=== PATIENT | male | born 1995 | race Caucasian/White ===

== ENCOUNTER 2017-05-01 21:34 | Emergency (ER) | payer OTHER ==
[2017-05-01] MEDS ORDERED: NS 1,000 ML IV ONE (21:40)
--- NOTE | 2017-05-01 21:41 | EDPHY ---
H & P HPI/ROS: HPI CHIEF COMPLAINT: Fall, Limited Trauma, ?13 feet. HISTORY OF PRESENT ILLNESS: This patient is 21-year-old male, he presents emergency room as a limited trauma by EMS. It is reported by EMS that the patient showed up to a house green party intoxicated. The patient went upstairs there is a deck out back with a balcony and told everybody was going to do a back flip off the edge of the balcony. He then proceeded to do this landing on his back falling 13-15 feet per EMS. Per witnesses he immediately got up off the ground and ran. Other people at the green party stops him police got involved. Due to his alcohol intoxication and the height of the fall he was brought to the emergency room as a limited trauma. Upon arrival to the emergency room the patient smells of alcohol, he is intoxicated, he tells me that he did not fall. He will not explain what happened. He does not answer any of my questions related to the event. Past Medical History: Denies medical history Past Surgical History: Denies surgical history Social History: Student, endorses alcohol this evening. Family History: Noncontributory ROS REVIEW OF SYSTEMS: Review systems is limited due to patient's mental state. Intoxication with alcohol. And unwilling to answer my questions. Exam Constitutional smells of alcohol, intoxicated, triage nursing summary reviewed , vital signs reviewed, awake/alert. Eyes normal conjunctivae and sclera, EOMI, PERRLA. 5 mm dilated pupils equal , sluggish to light. HENT head and neck reviewed no visible external trauma. normal inspection, atraumatic, moist mucus membranes, no epistaxis, neck supple/ no meningismus, no raccoon eyes. Respiratory clear to auscultation bilaterally, normal breath sounds, no respiratory distress, no wheezing. Cardiovascular rate normal, regular rhythm, no murmur, no edema, distal pulses normal. Gastrointestinal soft, non-tender, no rebound, no guarding, normal bowel sounds, no distension, no pulsatile mass. Genitourinary no CVA tenderness. Musculoskeletal no midline vertebral tenderness, full range of motion, no calf swelling, no tenderness of extremities, no meningismus, good pulses, neurovascularly intact. Skin superficial abrasions to the back pink, warm, & dry, no rash Neurologic awake, moves all 4 extremities equally, motor intact, smells of etoh. Psychiatric normal mood/affect. Heme/Lymph/Immune no lymphadenopathy. Differential Diagnosis: Includes but is not limited to in a particular order acute alcohol intoxication, closed head injury, subdural, traumatic subarachnoid , skull fracture, neck injury, other injuries from falling 15 feet. Medical Decision Making: Plan for this patient he is intoxicated altered he is unable to make medical decisions for himself. He has agreed to blood work and CT imaging. Plan will be to CT his head and neck to rule out significant trauma. Check blood work including alcohol level. Re-evaluation: CT scan head and neck for trauma are negative for acute traumatic injury. Report called to me by Dr. Rubio. 1239AM: This patient's labs reviewed urinalysis showed 3+ blood. Due to his fall and being intoxicated I elected to scan his abdomen pelvis with IV contrast to make sure does not have a kidney her general ureteral injury. The CT scan abdomen pelvis with IV contrast does not show any evidence of significant intra-abdominal traumatic injury. It is noted he does have disc herniation L4-L5 S1. Patient has no pain here. He has no back pain. There was a age indeterminate compression fracture seen on his chest x-ray however he does not have any midline back pain. Patient is still very intoxicated with alcohol. Once he is completely sober I will reassess him for further traumatic injuries. 1257AM: Patient is still intoxicated alcohol. He has no complaints at this time. Recommend re-evaluated when sober. 0501AM: This patient has been ambulatory throughout the emergency room multiple times this evening. He is requesting discharge. I did re-evaluate him he denies any pain anywhere specifically denies abdominal pain back pain neck pain headache shortness of breath or extremity pain. He is requesting discharge. He did come to the emergency room after took a fall from a high level. He was limited trauma. He was intoxicated. Now that he sober I reassessed him and he has no complaints. He did undergo a CT scan of his head and neck due to the mechanism and alcohol intoxication and not acting appropriately when he got here. These were reviewed and unremarkable for trauma. He additionally had a chest x-ray. Additionally the patient had blood in his urine 3+. Due to this reason he had a CT scan of his abdomen pelvis with IV contrast. There is no visible acute traumatic injury intra-abdominally. Specifically no kidney injury or bladder injury. Given the blood seen in his urine I will have him follow up with Urology outpatient. Additionally he understands return emergency room if develops worsening symptoms questions or concerns. Source: Patient - Personal History Tetanus Vaccine Date: 2013 - Medical/Surgical History Hx Asthma: No Hx Chronic Respiratory Disease: No Hx Diabetes: No Hx Cardiac Disease: No Hx Renal Disease: No Hx Cirrhosis: No Hx Alcoholism: No Hx HIV/AIDS: No Hx Splenectomy or Spleen Trauma: No Other PMH: Left wrist fracture, freq strep throat. - Social History Smoking Status: Never smoked Allergies/Adverse Reactions: No Known Allergies Allergy (Unverified 05/10/16 12:09) Home Medications: Medication Instructions Recorded Ondansetron 05/10/16 Penicillin V Potassium 05/10/16 Prednisone 05/10/16 Medical Decision Making - Diagnostics Imaging Results: Imaging Impressions Cervical Spine CT 05/01/17 21:40 Impression: No acute posttraumatic abnormality identified. Lateral concordant results called to Dr. Matamoros at 10:15 PM. Final results are concordant with the initial interpretation. General information for patients regarding this examination can be found at [facility]. If you have questions or comments about this report, please contact me at ([facility]) or [phone] (cell). Chest X-Ray 05/01/17 21:40 Impression: 1. Minimal T7 compression of unknown age. Correlation with symptoms is recommended. 2. Otherwise negative. Head CT 05/01/17 21:40 Impression: Head CT within normal limits. Final concordant results called to Dr. Matamoros at 22:10. General information for patients regarding this examination can be found at [facility]. If you have questions or comments about this report, please contact me at ([facility]) or [phone] (cell). Abdomen CT 05/01/17 23:13 Impression: 1. Prominent disk bulges or protrusions at L4-L5 and L5-S1. Note that S1 demonstrates attempted lumbarization and an S1-S2 disk space is rudimentary. 2. No source for hematuria identified. Results called to Dr. Matamoros at 12:18 a.m.. Final results are concordant with the preliminary interpretation. General information for patients regarding this examination can be found at [facility]. If you have questions or comments about this report, please contact me at (hospital) or [phone] (cell). - Data Points Laboratory Results: Laboratory Results 05/01/17 22:10 05/01/17 22:10 05/01/17 05/01/17 05/01/17 22:10 22:10 22:10 WBC 6.63 10^3/uL 10^3/uL (3.80-9.50) RBC 4.93 10^6/uL 10^6/uL (4.40-6.38) Hgb 15.5 g/dL g/dL (13.7-17.5) Hct 42.4 % % (40.0-51.0) MCV 86.0 fL fL (81.5-99.8) MCH 31.4 pg pg (27.9-34.1) MCHC 36.6 g/dL g/dL (32.4-36.7) RDW 12.7 % % (11.5-15.2) Plt Count 218 10^3/uL 10^3/uL (150-400) MPV 9.6 fL fL (8.7-11.7) Neut % (Auto) 61.8 % % (39.3-74.2) Lymph % (Auto) 30.6 % % (15.0-45.0) [place] % (Auto) 5.7 % % (4.5-13.0) Eos % (Auto) 1.1 % % (0.6-7.6) Baso % (Auto) 0.5 % % (0.3-1.7) Nucleat RBC Rel Count 0.0 % % (0.0-0.2) Absolute Neuts (auto) 4.10 10^3/uL 10^3/uL (1.70-6.50) Absolute Lymphs (auto) 2.03 10^3/uL 10^3/uL (1.00-3.00) Absolute Monos (auto) 0.38 10^3/uL 10^3/uL (0.30-0.80) Absolute Eos (auto) 0.07 10^3/uL 10^3/uL (0.03-0.40) Absolute Basos (auto) 0.03 10^3/uL 10^3/uL (0.02-0.10) Absolute Nucleated RBC 0.00 10^3/uL 10^3/uL (0-0.01) Immature Gran % 0.3 % % (0.0-1.1) Immature Gran # 0.02 10^3/uL 10^3/uL (0.00-0.10) PT 14.0 SEC SEC (12.0-15.0) INR 1.09 (0.83-1.16) APTT 26.5 SEC SEC (23.0-38.0) Sodium 144 mEq/L mEq/L (134-144) Potassium 3.6 mEq/L mEq/L (3.5-5.2) Chloride 107 mEq/L mEq/L (97-110) Carbon Dioxide 22 mEq/l mEq/l (22-31) Anion Gap 15 mEq/L mEq/L (8-16) BUN 16 mg/dL mg/dL (7-23) Creatinine 1.1 mg/dL mg/dL (0.7-1.3) Estimated GFR > 60 Glucose 94 mg/dL mg/dL (70-100) Calcium 9.4 mg/dL mg/dL (8.5-10.4) Urine Color Urine Appearance Urine pH Ur Specific [place] Urine Protein Urine Ketones Urine Blood Urine Nitrate Urine Bilirubin Urine Urobilinogen Ur Leukocyte Esterase Urine RBC Urine WBC Ur Epithelial Cells Amorphous Sediment Urine Glucose Urine Opiates Screen Urine Barbiturates Ur Phencyclidine Scrn Ur Amphetamine Screen U Benzodiazepines Scrn Urine Cocaine Screen U Marijuana (THC) Screen Ethyl Alcohol 275 mg/dL H mg/dL (0-10) 05/01/17 20:35 WBC RBC Hgb Hct MCV MCH MCHC RDW Plt Count MPV Neut % (Auto) Lymph % (Auto) [place] % (Auto) Eos % (Auto) Baso % (Auto) Nucleat RBC Rel Count Absolute Neuts (auto) Absolute Lymphs (auto) Absolute Monos (auto) Absolute Eos (auto) Absolute Basos (auto) Absolute Nucleated RBC Immature Gran % Immature Gran # PT INR APTT Sodium Potassium Chloride Carbon Dioxide Anion Gap BUN Creatinine Estimated GFR Glucose Calcium Urine Color PALE YELLOW Urine Appearance CLEAR Urine pH 6.0 (5.0-7.5) Ur Specific [place] 1.003 (1.002-1.030) Urine Protein 1+ H (NEGATIVE) Urine Ketones NEGATIVE (NEGATIVE) Urine Blood 3+ H (NEGATIVE) Urine Nitrate NEGATIVE (NEGATIVE) Urine Bilirubin NEGATIVE (NEGATIVE) Urine Urobilinogen NEGATIVE EU EU (0.2-1.0) Ur Leukocyte Esterase NEGATIVE (NEGATIVE) Urine RBC 3-5 /hpf H /hpf (0-3) Urine WBC 1-3 /hpf /hpf (0-3) Ur Epithelial Cells TRACE /lpf /lpf (NONE-1+) Amorphous Sediment PRESENT /hpf /hpf (NONE-1+) Urine Glucose NEGATIVE (NEGATIVE) Urine Opiates Screen NEGATIVE (NEGATIVE) Urine Barbiturates NEGATIVE (NEGATIVE) Ur Phencyclidine Scrn NEGATIVE (NEGATIVE) Ur Amphetamine Screen NEGATIVE (NEGATIVE) U Benzodiazepines Scrn NEGATIVE (NEGATIVE) Urine Cocaine Screen NEGATIVE (NEGATIVE) U Marijuana (THC) Screen NEGATIVE (NEGATIVE) Ethyl Alcohol Medications Given: Discontinued Medications Sodium Chloride (Ns) 1,000 mls @ 0 mls/hr IV ONCE ONE; Wide Open PRN Reason: Protocol Stop: 05/01/17 21:41 Last Admin: 05/01/17 22:10 Dose: 1,000 mls Departure - Departure Disposition: Home, Routine, Self-Care Clinical Impression: Alcohol intoxication Qualifiers: Complication of substance-induced condition: uncomplicated Qualified Code(s): F10.920 - Alcohol use, unspecified with intoxication, uncomplicated Fall Qualifiers: Encounter type: initial encounter Qualified Code(s): W19.XXXA - Unspecified fall, initial encounter Hematuria Qualifiers: Hematuria type: unspecified type Qualified Code(s): R31.9 - Hematuria, unspecified Condition: Good Instructions: Hematuria (ED), Fall Prevention (ED), Alcohol Intoxication (ED) Additional Instructions: 1. Return emergency room if develops worsening symptoms includes chest pain, shortness of breath, back pain, abdominal pain. Or any questions or concerns. 2. We did notice some blood in her urine today in the emergency room it is unclear why. Please follow up with Urology to have this evaluated. Please call them for follow-up appointment. Referrals: Patient,NotPresent [Unknown] - As per Instructions Mateus Tamayo MD [Medical Doctor] - As per Instructions
[2017-05-01 22:22] LABS: % IMMATURE GRANULYOCYTES 0.3 % (0.0-1.1); ABSOLUTE IMMATURE GRANULOCYTES 0.02 10^3/uL (0.00-0.10); ADD DIFF? NO; ADD MORPH? NO; ADD SCAN? NO; ATYPICAL LYMPHOCYTE FLAG 10 (0-99); FRAGMENT RBC FLAG 0 (0-99); HEMATOCRIT 42.4 % (40.0-51.0); HEMOGLOBIN 15.5 g/dL (13.7-17.5); LEFT SHIFT FLG 0 (0-99); LIPEMIA HEMOLYSIS FLAG 90 (0-99); MEAN CELL HEMOGLOBIN 31.4 pg (27.9-34.1); MEAN CELL HEMOGLOBIN CONCENTR. 36.6 g/dL (32.4-36.7); MEAN PLATELET VOLUME 9.6 fL (8.7-11.7); PLATELET CLUMPS FLAG 10 (0-99); PLATELET COUNT 218 10^3/uL (150-400); RED BLOOD CELL COUNT 4.93 10^6/uL (4.40-6.38); RED CELL DISTRIBUTION WIDTH 12.7 % (11.5-15.2)
[2017-05-01 22:33] LABS: ANION GAP 15 mEq/L (8-16); CALCIUM 9.4 mg/dL (8.5-10.4); CARBON DIOXIDE 22 mEq/l (22-31); CHLORIDE 107 mEq/L (97-110); CREATININE 1.1 mg/dL (0.7-1.3); ETHANOL SERUM 275 mg/dL (0-10); GLOMERULAR FILTRATION RATE > 60; GLUCOSE 94 mg/dL (70-100); POTASSIUM 3.6 mEq/L (3.5-5.2); SODIUM 144 mEq/L (134-144)
[2017-05-01 22:34] LABS: APTT 26.5 SEC (23.0-38.0); INR 1.09 (0.83-1.16)
[2017-05-01 22:42] LABS: COLOR PALE YELLOW; LEUKOCYTE ESTERASE,URINE NEGATIVE (NEGATIVE); NITRITE,URINE NEGATIVE (NEGATIVE)
[2017-05-01 22:46] LABS: AMORPHOUS PRESENT /hpf (NONE-1+)
[2017-05-01] MEDS ORDERED: IOPAMIDOL (ISOVUE-300) 100 ML BTL ONE (23:15)
[2017-05-02 05:36] VITALS: BP 128/69; PULSE 99; RESP 14; O2SAT 95
== END 2017-05-02 05:33 | disposition home or self-care (01) ==
LOC: EDUNIT#
DX: S30.810A Abrasion of lower back and pelvis, initial encounter (principal); R31.9 Hematuria, unspecified; W13.0XXA Fall from, out of or through balcony, initial encounter; Y92.009 Unspecified place in unspecified non-institutional (private) residence as the place of occurrence of the external cause; F10.920 Alcohol use, unspecified with intoxication, uncomplicated; E86.9 Volume depletion, unspecified
CPT/HCPCS: 80305; G0480; Q9967

== ENCOUNTER 2017-05-02 12:34 | Emergency (ER) | payer OTHER ==
[2017-05-02 13:01] VITALS: BP 150/89; PULSE 107; RESP 18; TEMP 97.9; O2SAT 96
== END 2017-05-02 13:39 | disposition left against medical advice (07) ==
DX: Z53.21 Procedure and treatment not carried out due to patient leaving prior to being seen by health care provider (principal)

== ENCOUNTER 2018-11-06 | Emergency (ER) | payer OTHER ==
--- NOTE | 2018-11-06 00:38 | EDPHY ---
H & P Stated Complaint: CONTRERAS and dizzy Time Seen by Provider: 11/06/18 00:29 HPI/ROS: Chief Complaint: Dizzy, blurry vision, hands numb, confusion HPI: 23-year-old male presenting with an episode at 3:30 a.m. Yesterday afternoon of blurry vision, lightheaded, dizziness in his hands were numb. This lasted for about 5 min. Onset resolved he had some mild confusion and difficulty concentrating for the next 2 hr. He last ate lunch at 1:45 a.m. In the afternoon. He does admit to using cocaine on Saturday and uses Adderall recreationally, last on Saturday. He is not prescribed Adderall. No fevers or chills. No chest pain or shortness of breath. No nausea or vomiting. Patient states symptoms have resolved. He does not have a history of similar episodes in the past. Otherwise has been in his usual state of health. ROS: 10 systems were reviewed and were negative except those elements noted in the HPI. PMH: Denies Social History: No smoking, occasional heavy alcohol, occasional cocaine and Adderall Family History: non-contributory Physical Exam: Gen: Awake, Alert, No Distress HEENT: Nose: no rhinorrhea Eyes: PERRLA, EOMI Mouth: Moist mucosa Neck: Supple, no JVD Chest: nontender, lungs clear to auscultation Heart: S1, S2 normal, no murmur Abd: Soft, non-tender, no guarding Back: no CVA tenderness, no midline tenderness Ext: no edema, non-tender Skin: no rash Neuro: CN II-XII intact, Sensation grossly intact, Strength 5/5 in bilateral upper and lower extremities - Personal History Current Tetanus/Diphtheria Vaccine: Yes Current Tetanus Diphtheria and Acellular Pertussis (TDAP): Yes Tetanus Vaccine Date: 2013 - Medical/Surgical History Hx Asthma: No Hx Chronic Respiratory Disease: No Hx Diabetes: No Hx Cardiac Disease: No Hx Renal Disease: No Hx Cirrhosis: No Hx Alcoholism: No Hx HIV/AIDS: No Hx Splenectomy or Spleen Trauma: No Other PMH: Left wrist fracture, freq strep throat., tonsillectomy - Social History Smoking Status: Never smoked Constitutional: Initial Vital Signs Temperature (C) 36.5 C 11/06/18 00:01 Heart Rate 92 11/06/18 00:01 Respiratory Rate 16 11/06/18 00:01 Blood Pressure 152/100 H 11/06/18 00:01 O2 Sat (%) 97 11/06/18 00:01 O2 Delivery Mode Room Air Allergies/Adverse Reactions: No Known Allergies Allergy (Verified 11/06/18 00:04) Home Medications: Medication Instructions Recorded NK [No Known Home Meds] 11/06/18 Medical Decision Making ED Course/Re-evaluation: Well-appearing 23-year-old male with an episode of blurry vision, hands tingling. No loss of consciousness. Symptoms likely secondary to either hypoglycemic episode or related to his polysubstance abuse. He has normal vital signs and examination here. I have counseled him to discontinue using cocaine and Adderall. Drink responsibly. Make sure he drinks adequate fluids in eats 3 meals a day. Follow up with primary care for any concerns. No evidence acute neurologic emergency infectious process or other acute medical emergency. Departure - Departure Disposition: Home, Routine, Self-Care Clinical Impression: Polysubstance abuse Condition: Good Instructions: Polysubstance Abuse (ED) Additional Instructions: Follow up with student health in 2-3 days for any concerns. Referrals: [facility] [Other] - As per Instructions
[2018-11-06 00:46] VITALS: BP 126/76
== END 2018-11-06 00:45 | disposition home or self-care (01) ==
DX: F15.10 Other stimulant abuse, uncomplicated (principal); F14.90 Cocaine use, unspecified, uncomplicated; F10.10 Alcohol abuse, uncomplicated